=== PATIENT | male | born 1960 | race Caucasian/White ===

== ENCOUNTER 2019-09-09 03:29 | Emergency (ER) | payer OTHER ==
[~2019-09-09] VITALS: Ht 175.3 cm; Wt 140.6 kg
[2019-09-09 03:39] VITALS: Ht 175.3 cm; Wt 140.6 kg
[2019-09-09 04:15] VITALS: BP 100/63
== END 2019-09-09 04:15 | disposition home or self-care (01) ==
LOC: ED 03:29
DX: I83.892 Varicose veins of left lower extremity with other complications (principal); I10 Essential (primary) hypertension